=== PATIENT | female | born 1935 | race Asian ===

== ENCOUNTER → 2018-09-08 | Day surgery (SDC) | payer MEDICARE, OTHER ==
[~2018-09-08] VITALS: Ht 147.3 cm; Wt 47.7 kg
[~2018-09-08] MED LIST: ADV250 IH; ALBU8HFA IH; ALBUTEROL SULFATE 2.5 MG/0.5 ML NEB SOLUTION NEB ONE; ALEN70TA10 PO; AMLO-511 PO; ATEN50TA PO; ATOR20TA86 PO; BENZOCAINE 20% 50 MCG/SPRAY 57 GM TP ONE; DEXTROSE 5%-0.45% SODIUM CHL 1,000 ML IV ONE; ESCI10TA PO; FentaNYL CITRATE-PF 100 MCG/2 ML VIAL ONE; LEVO25TA9 PO; LIDOCAINE 2% 11 ML JELLY TP ONE; LIDOCAINE 4% 50 ML SOLUTION TP ONE; LIPA1CAP18 PO; MIDAZOLAM HCL 2 MG/2 ML VIAL ONE; MethylPREDNISolone SOD SUCC 125 MG/2 ML VIAL IVP ONE; MethylPREDNISolone SOD SUCC 125 MG/2 ML VIAL ONE; OMEP20 PO; ONDANSETRON HCL 4 MG/2 ML VIAL IVP ONE; OXYGEN THERAPY IH SCH; QUET25TA PO; SERT50TA12 PO; SODIUM CHLORIDE 0.9% 1,000 ML IV ONE; SUCR1TAB PO; VIT1CAPS5 PO; VITAD1000 PO
[2018-09-08 11:40] LABS: GLUCOMETER DEV NAME(LOC) SDS.; GLUCOSE,POINT OF CARE 111 MG/DL (70-110)
== END | disposition home or self-care (01) ==
LOC: SURGERY 06:44
PROVIDERS: ATTEND Internal Medicine Critical Care Medicine
DX: J38.4 Edema of larynx (principal); B37.0 Candidal stomatitis; I10 Essential (primary) hypertension; J45.909 Unspecified asthma, uncomplicated; Z98.890 Other specified postprocedural states
CPT/HCPCS: 31623; 31624; 71045; 82962; 87015; 87070; 87101; 87206; 87220; 88108; 88312; 93005; J2250; J2405; J2930; J3010; J7030

== ENCOUNTER 2021-07-19 05:40 | Day surgery (SDC) | payer OTHER ==
[~2021-07-19] VITALS: Ht 143.5 cm; Wt 50.0 kg
[~2021-07-19 05:40] MED LIST changes: -ADV250 IH; -ALBUTEROL SULFATE 2.5 MG/0.5 ML NEB SOLUTION NEB ONE; -ALEN70TA10 PO; +ALEN70TA65 PO; +AMLO-257 PO; -AMLO-511 PO; +ATEN-72 PO; -ATEN50TA PO; -BENZOCAINE 20% 50 MCG/SPRAY 57 GM TP ONE; +CHOL100018 PO; -DEXTROSE 5%-0.45% SODIUM CHL 1,000 ML IV ONE; +ESCI-8 PO; -ESCI10TA PO; +FLUT1DIS6 IH; -FentaNYL CITRATE-PF 100 MCG/2 ML VIAL ONE; -LIDOCAINE 2% 11 ML JELLY TP ONE; -LIDOCAINE 4% 50 ML SOLUTION TP ONE; -MIDAZOLAM HCL 2 MG/2 ML VIAL ONE; -MethylPREDNISolone SOD SUCC 125 MG/2 ML VIAL IVP ONE; -MethylPREDNISolone SOD SUCC 125 MG/2 ML VIAL ONE; -ONDANSETRON HCL 4 MG/2 ML VIAL IVP ONE; -OXYGEN THERAPY IH SCH; -SERT50TA12 PO; -SODIUM CHLORIDE 0.9% 1,000 ML IV ONE; -SUCR1TAB PO; -VITAD1000 PO
[2021-07-19] MEDS ORDERED: LIDOCAINE 4% 50 ML SOLUTION TP ONE (05:41)
[2021-07-19] MEDS ORDERED: ALBUTEROL SULFATE 2.5 MG/0.5 ML NEB SOLUTION NEB ONE (05:41)
[2021-07-19] MEDS ORDERED: LIDOCAINE 2% 30 ML JELLY TP ONE (05:41)
[2021-07-19] MEDS ORDERED: BENZOCAINE 20% 50 MCG/SPRAY 57 GM TP ONE (05:41)
[2021-07-19] MEDS ORDERED: SODIUM CHLORIDE 0.9% 1,000 ML IV ONE (06:30)
[2021-07-19 06:44] LABS: COVID AG,FIA SOURCE NASOPHARYNGEAL
[2021-07-19] MEDS ORDERED: ASPI-1450 PO (06:58)
[2021-07-19] MEDS ORDERED: FLUT1DIS6 IH (06:58)
[2021-07-19] MEDS ORDERED: SODIUM CHLORIDE 0.9% 1,000 ML ONE (07:07)
[2021-07-19] MEDS ORDERED: EPINEPHrine 1:10,000 [1 MG/10 ML] SYRINGE ONE (07:47)
[2021-07-19] MEDS ORDERED: DiphenhydrAMINE HCL 50 MG/ML VIAL ONE (07:48)
[2021-07-19] MEDS ORDERED: FLUMAZENIL 0.1 MG/ML 5 ML VIAL IVP ONE (07:48)
[2021-07-19] MEDS ORDERED: SODIUM TETRADECYL SULFATE 3% 60 MG/2 ML VIAL IVP ONE (07:48)
[2021-07-19] MEDS ORDERED: ATROPINE SULFATE 0.1 MG/ML 10 ML SYRINGE IVP ONE (07:48)
[2021-07-19] MEDS ORDERED: NALOXONE HCL 0.4 MG/ML VIAL ONE (07:48)
[2021-07-19] MEDS ORDERED: FentaNYL CITRATE PF 100 MCG/2 ML VIAL ONE (07:51)
[2021-07-19] MEDS ORDERED: MIDAZOLAM HCL 5 MG/ML VIAL ONE (07:52)
[2021-07-19] MEDS ORDERED: MethylPREDNISolone SOD SUCC 125 MG/2 ML VIAL IVP ONE (09:00)
[2021-07-19] MEDS ORDERED: MethylPREDNISolone SOD SUCC 125 MG/2 ML VIAL ONE (09:07)
[2021-07-19] MEDS ORDERED: OXYGEN THERAPY IH SCH (20:00)
== END 2021-07-19 11:10 | disposition home or self-care (01) ==
LOC: SURGERY 05:40
PROVIDERS: ATTEND Internal Medicine Critical Care Medicine
DX: J38.4 Edema of larynx (principal); B37.0 Candidal stomatitis; I10 Essential (primary) hypertension; Z79.899 Other long term (current) drug therapy; Z90.49 Acquired absence of other specified parts of digestive tract; Z98.890 Other specified postprocedural states; Z91.09 Other allergy status, other than to drugs and biological substances; E03.9 Hypothyroidism, unspecified; Z79.82 Long term (current) use of aspirin
CPT/HCPCS: 31623; 31624; 71045; 87015; 87070; 87101; 87206; 87220; 87426; 88112; 88184; 88185; 88312; 93005; C9803; J2250; J2930; J3010; J7030; J0171; J0461; J1200; J2310; J3490; Q9967; J7613; Z7610